=== PATIENT | female | born 1970 | race Caucasian/White ===

== ENCOUNTER → 2016-07-09 | Outpatient (CLI) | payer BC ==
[2016-07-09 14:18] LABS: ALBUMIN 3.7 GM/DL (3.2-5.2); ALBUMIN/GLOBULIN RATIO 1.28 (1.00-1.93); ALKALINE PHOSPHATASE 57 U/L (45-117); ALT/SGPT 13 U/L (12-78); ANION GAP 7 MEQ/L (8-16); AST/SGOT 13 U/L (15-37); BILIRUBIN,TOTAL 0.4 MG/DL (0.2-1.0); BLOOD UREA NITROGEN 7 MG/DL (7-18); CALCIUM LEVEL 8.4 MG/DL (8.5-10.1); CARBON DIOXIDE LEVEL 27 MEQ/L (21-32); CHLORIDE LEVEL 107 MEQ/L (98-107); CREATININE FOR GFR 0.71 MG/DL (0.55-1.02); FERRITIN 4 NG/ML (8-252); GLOMERULAR FILTRATION RATE > 60.0 (>58); GLUCOSE, FASTING 87 MG/DL (70-105); POTASSIUM SERUM 4.7 MEQ/L (3.5-5.1); SODIUM LEVEL 141 MEQ/L (136-145); TOTAL PROTEIN 6.6 GM/DL (6.4-8.2)
[2016-07-09 14:45] LABS: MEAN CORPUSCULAR HEMOGLOBIN 24.7 pg (27.0-33.0); MEAN CORPUSCULAR HGB CONC 30.6 g/dl (32.0-36.5); MEAN CORPUSCULAR VOLUME 80.9 fl (80.0-96.0); PLATELET COUNT, AUTOMATED 332 k/mm3 (150-450); RED CELL DISTRIBUTION WIDTH 15.6 % (11.5-14.5); WHITE BLOOD COUNT 4.7 K/mm3 (4.0-10.0)
[2016-07-09 14:46] LABS: DIFF SLIDE NUMBER 120
[2016-07-09 14:53] LABS: BASOPHILS 1 % (0-4); EOSINOPHILS 3 % (0-5); HYPOCHROMASIA 2+
== END ==
LOC: M WUC 08:45
PROVIDERS: ATTEND Family Medicine
DX: E16.2 Hypoglycemia, unspecified (principal); Z98.84 Bariatric surgery status; E11.40 Type 2 diabetes mellitus with diabetic neuropathy, unspecified

== ENCOUNTER → 2016-10-04 | Outpatient (REF) | payer BC | LOC: M SFHCLERA 14:23 | PROVIDERS: ATTEND Nurse Practitioner Family | DX: R06.02 Shortness of breath (principal) ==

== ENCOUNTER → 2016-10-04 | Outpatient (CLI) | payer BC ==
--- NOTE | 2016-10-04 14:20 | REP ---
Clinical: Shortness of breath . Comparison: 02/10/2012 . Technique: PA and lateral. Findings: The mediastinum and cardiac silhouette are normal. The lung rucker are clear and without acute consolidation, effusion, or pneumothorax. Few scattered calcified granulomata remain stable. The skeletal structures are intact and normal. Impression: 1. No acute cardiopulmonary process. Signed by Louie Saunders MD 10/04/2016 02:11 P
== END ==
LOC: M LRY 13:51
PROVIDERS: ATTEND Nurse Practitioner Family
DX: R06.02 Shortness of breath (principal)

== ENCOUNTER → 2016-10-18 | Outpatient (CLI) | payer BC ==
[2016-10-18 19:03] LABS: BASO % 0.4 % (0.0-1.0); EOS # 0.1 K/mm3 (0.0-0.50); EOS % 1.9 % (0.0-3.0); LARGE UNSTAINED CELL # 0.2 K/mm3 (0.0-0.4); LARGE UNSTAINED CELL % 3.1 % (0.0-4.0); LYMPH # 1.9 K/mm3 (1.5-4.5); LYMPH % 32.7 % (24.0-44.0); MEAN CORPUSCULAR HEMOGLOBIN 28.7 pg (27.0-33.0); MEAN CORPUSCULAR HGB CONC 31.9 g/dl (32.0-36.5); MEAN CORPUSCULAR VOLUME 89.9 fl (80.0-96.0); MONO # 0.4 K/mm3 (0.0-0.8); MONO % 7.3 % (0.0-5.0); NEUTROPHILS # 3.2 K/mm3 (1.8-7.7); NEUTROPHILS % 54.6 % (36.0-66.0); PLATELET COUNT, AUTOMATED 356 k/mm3 (150-450); RED CELL DISTRIBUTION WIDTH 16.8 % (11.5-14.5); WHITE BLOOD COUNT 5.9 K/mm3 (4.0-10.0)
== END ==
LOC: M WUC 10:59
PROVIDERS: ATTEND Family Medicine
DX: D50.9 Iron deficiency anemia, unspecified (principal); E55.9 Vitamin D deficiency, unspecified

== ENCOUNTER → 2016-12-01 | Outpatient (REF) | payer BC | LOC: M LAB REF 16:51 | PROVIDERS: ATTEND Family Medicine | DX: Z01.419 Encounter for gynecological examination (general) (routine) without abnormal findings (principal); Z11.51 Encounter for screening for human papillomavirus (HPV) ==

== ENCOUNTER → 2017-01-27 | Outpatient (CLI) | payer BC ==
[2017-01-27 14:31] LABS: BASO % 0.5 % (0.0-1.0); EOS # 0.1 K/mm3 (0.0-0.50); LARGE UNSTAINED CELL # 0.1 K/mm3 (0.0-0.4); LARGE UNSTAINED CELL % 2.3 % (0.0-4.0); LYMPH # 1.8 K/mm3 (1.5-4.5); LYMPH % 30.8 % (24.0-44.0); MEAN CORPUSCULAR HEMOGLOBIN 29.6 pg (27.0-33.0); MEAN CORPUSCULAR HGB CONC 32.6 g/dl (32.0-36.5); MEAN CORPUSCULAR VOLUME 90.7 fl (80.0-96.0); MONO # 0.2 K/mm3 (0.0-0.8); MONO % 3.6 % (0.0-5.0); NEUTROPHILS # 3.6 K/mm3 (1.8-7.7); NEUTROPHILS % 60.8 % (36.0-66.0); PLATELET COUNT, AUTOMATED 333 k/mm3 (150-450); RED CELL DISTRIBUTION WIDTH 13.6 % (11.5-14.5)
[2017-01-27 15:17] LABS: ERYTHROCYTE SEDIMENTATION RATE 12 mm/hr (0-20)
[2017-01-29 00:07] LABS: Lyme Disease IgG/IgM Antibodie <0.91 ISR (0.00-0.90); Lyme Disease IgM Ab Quantitati <0.80 index (0.00-0.79)
== END ==
LOC: M WUC 12:09
PROVIDERS: ATTEND Family Medicine
DX: H15.102 Unspecified episcleritis, left eye (principal); E55.9 Vitamin D deficiency, unspecified; M25.50 Pain in unspecified joint

== ENCOUNTER → 2017-09-12 | Outpatient (CLI) | payer BC ==
[2017-09-12 12:18] LABS: HEMATOCRIT 34.3 % (36.0-47.0); HEMOGLOBIN 10.9 g/dl (12.0-15.5); MEAN CORPUSCULAR HEMOGLOBIN 25.7 pg (27.0-33.0); MEAN CORPUSCULAR HGB CONC 31.8 g/dl (32.0-36.5); MEAN CORPUSCULAR VOLUME 80.9 fl (80.0-96.0); PLATELET COUNT, AUTOMATED 333 10^3/uL (150-450); RED BLOOD COUNT 4.24 10^6/uL (4.00-5.40); RED CELL DISTRIBUTION WIDTH 14.8 % (11.5-14.5); WHITE BLOOD COUNT 4.9 10^3/uL (4.0-10.0)
[2017-09-12 12:33] LABS: TOTAL 25(OH) VITAMIN D 15.9 NG/ML (30.0-100.0); VITAMIN B12 LEVEL 283 PG/ML
[2017-09-12 13:10] LABS: ALBUMIN 3.6 GM/DL (3.2-5.2); ALBUMIN/GLOBULIN RATIO 1.16 (1.00-1.93); ALKALINE PHOSPHATASE 60 U/L (45-117); ALT/SGPT 19 U/L (12-78); ANION GAP 8 MEQ/L (8-16); AST/SGOT 11 U/L (7-37); BILIRUBIN,TOTAL 0.3 MG/DL (0.2-1.0); BLOOD UREA NITROGEN 11 MG/DL (7-18); CALCIUM LEVEL 8.3 MG/DL (8.5-10.1); CARBON DIOXIDE LEVEL 24 MEQ/L (21-32); CHLORIDE LEVEL 111 MEQ/L (98-107); CHOLESTEROL LEVEL 185 MG/DL (<200); CHOLESTEROL RISK RATIO 3.135 (<5); CREATININE FOR GFR 0.77 MG/DL (0.55-1.30); FREE T4 0.97 NG/DL (0.76-1.46); GLOMERULAR FILTRATION RATE > 60.0 (>58); GLUCOSE, FASTING 86 MG/DL (70-100); HDL CHOLESTEROL 59 MG/DL (>40); LDL CHOLESTEROL 106.4 MG/DL (<100); NON-HDL-C 126 MG/DL; POTASSIUM SERUM 4.1 MEQ/L (3.5-5.1); SODIUM LEVEL 143 MEQ/L (136-145); TOTAL PROTEIN 6.7 GM/DL (6.4-8.2); TRIGLYCERIDES LEVEL 98 MG/DL (<150)
== END ==
LOC: M WUC 09:02
DX: L40.4 Guttate psoriasis (principal); Z13.220 Encounter for screening for lipoid disorders; E55.9 Vitamin D deficiency, unspecified; R53.82 Chronic fatigue, unspecified; Z13.0 Encounter for screening for diseases of the blood and blood-forming organs and certain disorders involving the immune mechanism; Z13.29 Encounter for screening for other suspected endocrine disorder
CPT/HCPCS: 82746

== ENCOUNTER → 2018-01-24 | Outpatient (REF) | payer BC | LOC: M LAB REF 17:55 | DX: N93.9 Abnormal uterine and vaginal bleeding, unspecified (principal) | CPT/HCPCS: 88304 ==

== ENCOUNTER → 2018-02-17 | Outpatient (CLI) | payer BC ==
[2018-02-17 13:08] LABS: BASO % 0.4 % (0.0-1.0); EOS # 0.1 10^3/uL (0.0-0.50); EOS % 2.6 % (0.0-3.0); HEMATOCRIT 32.6 % (36.0-47.0); HEMOGLOBIN 10.2 g/dl (12.0-15.5); IMMATURE GRANULOCYTE % 0.2 % (0-3.0); LYMPH # 1.5 10^3/uL (1.5-4.5); LYMPH % 33.1 % (24.0-44.0); MEAN CORPUSCULAR HEMOGLOBIN 24.4 pg (27.0-33.0); MEAN CORPUSCULAR HGB CONC 31.3 g/dl (32.0-36.5); MONO # 0.4 10^3/uL (0.0-0.8); MONO % 7.6 % (0.0-5.0); NEUTROPHILS # 2.6 10^3/uL (1.8-7.7); NEUTROPHILS % 56.1 % (36.0-66.0); PLATELET COUNT, AUTOMATED 361 10^3/uL (150-450); RED BLOOD COUNT 4.18 10^6/uL (4.00-5.40); RED CELL DISTRIBUTION WIDTH 15.1 % (11.5-14.5); WHITE BLOOD COUNT 4.6 10^3/uL (4.0-10.0)
[2018-02-17 13:36] LABS: ERYTHROCYTE SEDIMENTATION RATE 15 mm/hr (0-20)
[2018-02-17 13:45] LABS: ANION GAP 10 MEQ/L (8-16); BLOOD UREA NITROGEN 11 MG/DL (7-18); C REACTIVE PROTEIN QUANTITATIV 0.75 MG/DL (0.00-0.30); CALCIUM LEVEL 8.8 MG/DL (8.5-10.1); CARBON DIOXIDE LEVEL 26 MEQ/L (21-32); CHLORIDE LEVEL 107 MEQ/L (98-107); CREATININE FOR GFR 0.61 MG/DL (0.55-1.30); FERRITIN 7 NG/ML (8-252); GLOMERULAR FILTRATION RATE > 60.0 (>58); GLUCOSE, FASTING 89 MG/DL (70-100); IRON (FE) 40 UG/DL (50-170); PERCENT SATURATION 11.3 % (13.2-45.0); RHEUMATOID FACTOR QUANT < 10.0 IU/ML (<15.0); SODIUM LEVEL 143 MEQ/L (136-145); TOTAL IRON BINDING CAPACITY 355 UG/DL (250-450)
[2018-02-17 14:10] LABS: ESTIMATED AVERAGE GLUCOSE 120 MG/DL (60-110); HEMOGLOBIN A1c 5.8 %
[2018-02-19 00:06] LABS: Lyme Disease IgG/IgM Antibodie <0.91 ISR (0.00-0.90); Lyme Disease IgM Ab Quantitati <0.80 index (0.00-0.79)
[2018-02-20 00:09] LABS: CYCLIC CITRULLINATED PEPTIDE 4 units (0-19)
== END ==
LOC: M WUC 09:03
DX: R60.0 Localized edema (principal); E55.9 Vitamin D deficiency, unspecified; E61.1 Iron deficiency; Z98.84 Bariatric surgery status; M25.50 Pain in unspecified joint; E11.9 Type 2 diabetes mellitus without complications
CPT/HCPCS: 83550

== ENCOUNTER → 2018-03-22 | Outpatient (REF) | payer BC | LOC: M LAB REF 17:22 | DX: J02.9 Acute pharyngitis, unspecified (principal) ==

== ENCOUNTER → 2018-08-11 | Outpatient (CLI) | payer BC ==
[~2018-08-11] MED LIST: GABA-843 PO; IRON325T7 PO; MULTCAP PO; VITA50005 PO
[2018-08-11 13:32] LABS: BASO % 0.4 % (0.0-1.0); EOS # 0.1 10^3/uL (0.0-0.50); EOS % 2.3 % (0.0-3.0); HEMATOCRIT 33.3 % (36.0-47.0); LYMPH # 1.6 10^3/uL (1.5-4.5); LYMPH % 33.1 % (24.0-44.0); MEAN CORPUSCULAR HEMOGLOBIN 23.9 pg (27.0-33.0); MEAN CORPUSCULAR VOLUME 79.5 fl (80.0-96.0); MONO # 0.3 10^3/uL (0.0-0.8); MONO % 5.6 % (0.0-5.0); NEUTROPHILS # 2.8 10^3/uL (1.8-7.7); NEUTROPHILS % 58.4 % (36.0-66.0); PLATELET COUNT, AUTOMATED 293 10^3/uL (150-450); RED BLOOD COUNT 4.19 10^6/uL (4.00-5.40); WHITE BLOOD COUNT 4.8 10^3/uL (4.0-10.0)
[2018-08-11 14:10] LABS: ALBUMIN 3.8 GM/DL (3.2-5.2); ALT/SGPT 20 U/L (12-78); BILIRUBIN,TOTAL 0.4 MG/DL (0.2-1.0); BLOOD UREA NITROGEN 9 MG/DL (7-18); CALCIUM LEVEL 8.4 MG/DL (8.5-10.1); CARBON DIOXIDE LEVEL 27 MEQ/L (21-32); CHLORIDE LEVEL 105 MEQ/L (98-107); CREATININE FOR GFR 0.75 MG/DL (0.55-1.30); FERRITIN 7 NG/ML (8-252); GLOMERULAR FILTRATION RATE > 60.0 (>58); GLUCOSE, FASTING 105 MG/DL (70-100); IRON (FE) 44 UG/DL (50-170); PERCENT SATURATION 10.8 % (13.2-45.0); POTASSIUM SERUM 4.2 MEQ/L (3.5-5.1); SODIUM LEVEL 139 MEQ/L (136-145); TOTAL 25(OH) VITAMIN D 20.4 NG/ML (30.0-100.0); TOTAL IRON BINDING CAPACITY 406 UG/DL (250-450); TOTAL PROTEIN 6.6 GM/DL (6.4-8.2)
== END ==
LOC: M WUC 10:14
PROVIDERS: ATTEND Family Medicine
DX: R60.0 Localized edema (principal); E55.9 Vitamin D deficiency, unspecified; E61.1 Iron deficiency

== ENCOUNTER → 2018-10-06 | Outpatient (CLI) | payer BC ==
[~2018-10-06] MED LIST changes: +FERR325T82 PO; +HYDR25TAB PO; -IRON325T7 PO; +VITACAP8 PO
--- NOTE | 2018-10-06 13:25 | REP ---
Clinical: Bilateral pain. Technique: AP, lateral, bilateral oblique views of the right and left hand. Findings: Osseous structures, joint spaces, and surrounding soft tissues are relatively normal for age and symmetric. Minimal periarticular sclerosis and scattered interphalangeal joints appreciated. No overt osteoarthritic or inflammatory arthritic degenerative changes are appreciated. No subcutaneous emphysema or radiodense foreign body. No acute fracture dislocation. Findings: Symmetric age-appropriate bilateral hand radiograph series. Very minimal arthritic changes involving scattered interphalangeal joints. Electronically Signed by Louie Saunders MD 10/06/2018 01:17 P
[2018-10-06 17:39] LABS: C REACTIVE PROTEIN QUANTITATIV 0.49 MG/DL (0.00-0.30); FERRITIN 5 NG/ML (8-252); IRON (FE) 21 UG/DL (50-170); PERCENT SATURATION 5.2 % (13.2-45.0); RHEUMATOID FACTOR QUANT < 10.0 IU/ML (<15.0); TOTAL IRON BINDING CAPACITY 403 UG/DL (250-450)
[2018-10-09 09:03] LABS: TOTAL 25(OH) VITAMIN D 21.3 NG/ML (30.0-100.0)
[2018-10-11 00:07] LABS: ANTINUCLEAR ANTIBODIES DIRECT Negative (Negative); CYCLIC CITRULLINATED PEPTIDE 4 units (0-19); Lyme Disease IgG/IgM Antibodie <0.91 ISR (0.00-0.90); Lyme Disease IgM Ab Quantitati <0.80 index (0.00-0.79)
== END ==
LOC: M WUC 11:37
PROVIDERS: ATTEND Family Medicine
DX: M25.542 Pain in joints of left hand (principal); M25.541 Pain in joints of right hand

== ENCOUNTER 2018-10-17 09:52 | Outpatient (CLI) | payer BC ==
[~2018-10-17] VITALS: Ht 170.2 cm; Wt 109.1 kg
[~2018-10-17 09:52] MED LIST changes: -HYDR25TAB PO; -VITACAP8 PO
[2018-10-17] MEDS ORDERED: NS IV ONE (10:00)
[2018-10-17] MEDS ORDERED: FERRIC CARBOXYMALTOSE IV ONE (10:00)
[2018-10-17] MEDS ORDERED: VITACAP8 PO (10:23)
[2018-10-17] MEDS ORDERED: HYDR25TAB PO (10:23)
[2018-10-17 10:30] VITALS: BP 123/57
[2018-10-17 10:46] VITALS: BP 123/57
[2018-10-17 11:26] VITALS: BP 120/57
== END 2018-10-17 11:45 | disposition home or self-care (01) ==
LOC: M INFU 09:52
PROVIDERS: ATTEND Family Medicine
DX: E61.1 Iron deficiency (principal); Z98.84 Bariatric surgery status
CPT/HCPCS: 96365; J1439

== ENCOUNTER 2018-10-24 13:17 | Outpatient (CLI) | payer BC ==
[~2018-10-24] VITALS: Ht 170.2 cm; Wt 100.5 kg
[~2018-10-24 13:17] MED LIST changes: +HYDR25TAB PO; +VITACAP8 PO
[2018-10-24 13:35] VITALS: BP 135/80
[2018-10-24] MEDS ORDERED: FERRIC CARBOXYMALTOSE IV ONE (14:30)
[2018-10-24] MEDS ORDERED: NS IV ONE (14:30)
[2018-10-24 15:30] VITALS: BP 126/84
== END 2018-10-24 15:35 | disposition home or self-care (01) ==
LOC: M INFU 13:17
PROVIDERS: ATTEND Family Medicine
DX: E61.1 Iron deficiency (principal); Z98.84 Bariatric surgery status
CPT/HCPCS: 96365; J1439

== ENCOUNTER → 2018-11-13 | Outpatient (CLI) | payer BC ==
[2018-11-13 13:30] LABS: BASO % 0.7 % (0.0-1.0); EOS # 0.1 10^3/uL (0.0-0.50); EOS % 1.1 % (0.0-3.0); HEMATOCRIT 37.5 % (36.0-47.0); HEMOGLOBIN 11.9 g/dl (12.0-15.5); LYMPH # 1.6 10^3/uL (1.5-4.5); LYMPH % 36.9 % (24.0-44.0); MEAN CORPUSCULAR HEMOGLOBIN 27.5 pg (27.0-33.0); MEAN CORPUSCULAR HGB CONC 31.7 g/dl (32.0-36.5); MEAN CORPUSCULAR VOLUME 86.6 fl (80.0-96.0); MONO # 0.3 10^3/uL (0.0-0.8); MONO % 6.2 % (0.0-5.0); NEUTROPHILS # 2.4 10^3/uL (1.8-7.7); NEUTROPHILS % 54.9 % (36.0-66.0); PLATELET COUNT, AUTOMATED 277 10^3/uL (150-450); RED BLOOD COUNT 4.33 10^6/uL (4.00-5.40); WHITE BLOOD COUNT 4.4 10^3/uL (4.0-10.0)
[2018-11-13 13:39] LABS: PERCENT SATURATION 37.3 % (13.2-45.0)
== END ==
LOC: M WUC 10:35
PROVIDERS: ATTEND Family Medicine
DX: E61.1 Iron deficiency (principal)

== ENCOUNTER → 2019-04-19 | Outpatient (CLI) | payer BC | LOC: M LRY 11:38 | PROVIDERS: ATTEND Nurse Practitioner Family | DX: R05 Cough (principal); Z53.9 Procedure and treatment not carried out, unspecified reason ==

== ENCOUNTER → 2019-08-30 | Outpatient (CLI) | payer BC | LOC: M LABSMTC 10:50 | PROVIDERS: ATTEND Family Medicine | DX: Z11.59 Encounter for screening for other viral diseases (principal); Z20.828 Contact with and (suspected) exposure to other viral communicable diseases ==

== ENCOUNTER → 2020-04-30 | Outpatient (CLI) | payer BC ==
--- NOTE | 2020-04-30 09:26 | REP ---
INDICATION: PAIN IN JOINTS. Base of thumb and navicular pain. COMPARISON: Comparison right hand radiographs are from October 06, 2018.. TECHNIQUE: Four views. FINDINGS: Four views of the right hand demonstrate moderate osteoarthritis at the 1st carpometacarpal articulation with joint space narrowing, sclerosis and spurring. There are new calcifications or ossifications in the adjacent soft tissues at the 1st carpometacarpal articulation. The sclerosis and joint space narrowing are similar to the October 06, 2018 study. No bony destructive lesion is seen. There is minimal spurring at the DIP joint of the index finger as well.. No fracture or subluxation is seen. No opaque foreign body noted. IMPRESSION: Moderate osteoarthritis at the 1st carpometacarpal articulation with periarticular soft tissue ossicles. No acute bony abnormality. Osteoarthritic spurring at the DIP joint of the index finger is also noted.. <Electronically signed by Vijay Wyatt > 04/30/20 0913
[2020-04-30 14:11] LABS: BASO % 0.4 % (0.0-1.0); EOS # 0.2 10^3/uL (0.0-0.5); EOS % 1.7 % (0.0-3.0); HEMATOCRIT 38.5 % (36.0-47.0); HEMOGLOBIN 11.7 g/dl (12.0-15.5); LYMPH # 3.2 10^3/uL (1.5-5.0); LYMPH % 32.6 % (24.0-44.0); MEAN CORPUSCULAR HEMOGLOBIN 25.7 pg (27.0-33.0); MEAN CORPUSCULAR HGB CONC 30.4 g/dl (32.0-36.5); MEAN CORPUSCULAR VOLUME 84.4 fl (80.0-96.0); MONO # 0.6 10^3/uL (0.0-0.8); MONO % 6.5 % (0.0-5.0); NEUTROPHILS # 5.6 10^3/uL (1.5-8.5); NEUTROPHILS % 58.3 % (36.0-66.0); PLATELET COUNT, AUTOMATED 327 10^3/uL (150-450); RED BLOOD COUNT 4.56 10^6/uL (4.00-5.40); WHITE BLOOD COUNT 9.7 10^3/uL (4.0-10.0)
[2020-04-30 14:20] LABS: ALBUMIN 3.3 GM/DL (3.2-5.2); ALT/SGPT 17 U/L (12-78); BILIRUBIN,TOTAL 0.3 MG/DL (0.2-1.0); BLOOD UREA NITROGEN 11 MG/DL (7-18); C REACTIVE PROTEIN QUANTITATIV 1.19 MG/DL (0.00-0.30); CALCIUM LEVEL 8.6 MG/DL (8.5-10.1); CARBON DIOXIDE LEVEL 27 MEQ/L (21-32); CHLORIDE LEVEL 107 MEQ/L (98-107); CREATININE FOR GFR 0.83 MG/DL (0.55-1.30); GLOMERULAR FILTRATION RATE > 60.0 (>58); GLUCOSE, FASTING 81 MG/DL (70-100); POTASSIUM SERUM 3.9 MEQ/L (3.5-5.1); RHEUMATOID FACTOR QUANT < 10.0 IU/ML (<15.0); SODIUM LEVEL 139 MEQ/L (136-145); TOTAL PROTEIN 6.2 GM/DL (6.4-8.2); URIC ACID 4.8 MG/DL (2.6-6.0)
[2020-04-30 15:19] LABS: ERYTHROCYTE SEDIMENTATION RATE 5 mm/hr (0-20)
[2020-05-01 23:09] LABS: ANA (HEP2) Negative (.); CYCLIC CITRULLINATED PEPTIDE 4 units (0-19)
== END ==
LOC: M WUC 08:35
PROVIDERS: ATTEND Physician Assistant
DX: M18.11 Unilateral primary osteoarthritis of first carpometacarpal joint, right hand (principal)

== ENCOUNTER → 2020-05-20 | Outpatient (CLI) | payer BC ==
[2020-05-20 13:13] LABS: BASO % 0.3 % (0.0-1.0); EOS # 0.2 10^3/uL (0.0-0.5); EOS % 2.4 % (0.0-3.0); HEMATOCRIT 36.3 % (36.0-47.0); HEMOGLOBIN 11.3 g/dl (12.0-15.5); LYMPH # 2.6 10^3/uL (1.5-5.0); LYMPH % 36.8 % (24.0-44.0); MEAN CORPUSCULAR HEMOGLOBIN 26.1 pg (27.0-33.0); MEAN CORPUSCULAR HGB CONC 31.1 g/dl (32.0-36.5); MEAN CORPUSCULAR VOLUME 83.8 fl (80.0-96.0); MONO # 0.5 10^3/uL (0.0-0.8); MONO % 7.6 % (0.0-5.0); NEUTROPHILS # 3.6 10^3/uL (1.5-8.5); NEUTROPHILS % 52.5 % (36.0-66.0); PLATELET COUNT, AUTOMATED 394 10^3/uL (150-450); RED BLOOD COUNT 4.33 10^6/uL (4.00-5.40)
[2020-05-20 13:46] LABS: ALBUMIN 3.4 GM/DL (3.2-5.2); ALT/SGPT 14 U/L (12-78); BILIRUBIN,TOTAL 0.4 MG/DL (0.2-1.0); BLOOD UREA NITROGEN 8 MG/DL (7-18); CARBON DIOXIDE LEVEL 30 MEQ/L (21-32); CHLORIDE LEVEL 107 MEQ/L (98-107); CHOLESTEROL LEVEL 204 MG/DL (<200); CHOLESTEROL RISK RATIO 2.956 (<5); CREATININE FOR GFR 0.83 MG/DL (0.55-1.30); FREE T4 1.13 NG/DL (0.76-1.46); GLOMERULAR FILTRATION RATE > 60.0 (>58); GLUCOSE, FASTING 83 MG/DL (70-100); HDL CHOLESTEROL 69 MG/DL (>40); LDL CHOLESTEROL 116 MG/DL (<100); NON-HDL-C 135 MG/DL; POTASSIUM SERUM 4.5 MEQ/L (3.5-5.1); SODIUM LEVEL 141 MEQ/L (136-145); TOTAL PROTEIN 6.3 GM/DL (6.4-8.2); TRIGLYCERIDES LEVEL 96 MG/DL (<150)
[2020-05-20 14:37] LABS: HEMOGLOBIN A1c 5.7 %
[2020-05-20 19:54] LABS: TOTAL 25(OH) VITAMIN D 16.1 NG/ML (30.0-100.0)
== END ==
LOC: M WUC 09:17
PROVIDERS: ATTEND Physician Assistant
DX: Z13.29 Encounter for screening for other suspected endocrine disorder (principal)

== ENCOUNTER → 2020-05-21 | Outpatient (REF) | payer BC ==
[2020-05-21 17:15] LABS: CREATININE,RANDOM URINE 74.4 MG/DL; TOTAL PROTEIN,RANDOM URINE 7.4 MG/DL (0.0-12.0)
== END ==
LOC: M SFHCRHEU 14:54
PROVIDERS: ATTEND Internal Medicine
DX: I77.6 Arteritis, unspecified (principal)

== ENCOUNTER → 2020-05-21 | Outpatient (CLI) | payer BC | LOC: M WUC 15:48 | PROVIDERS: ATTEND Internal Medicine | DX: I77.6 Arteritis, unspecified (principal) ==

== ENCOUNTER → 2020-05-22 | Outpatient (CLI) | payer BC ==
[~2020-05-22] MED LIST changes: +ISOVUE-370 76% 100ML VIAL As Ordered ONE
--- NOTE | 2020-05-22 09:26 | REP ---
INDICATION: VASCULITIS COMPARISON: None. TECHNIQUE: Contrast enhancement dose is 125 mL of intravenous Isovue 370. Helical scanning is acquired. 2 mm axial images are re-formatted. Coronal and sagittal MPR images are generated. Coronal and sagittal MIP and oblique MPR images are generated. 3D surface rendered images are generated and viewed rotationally. FINDINGS: Incidental findings include granulomatous calcifications in the left upper lobe of the lung and in left hilar lymph nodes. There is an azygos lobe on the right. The aortic arch enhances homogeneously without significant plaquing or calcification. No evidence of aneurysm or dissection. Great vessel origins are unremarkable. There is no evidence of subclavian arterial occlusion or stenosis on either side. No venous abnormality is appreciated. Common carotid arteries are intact bilaterally and widely patent. Basilar arteries are patent and symmetric. The basilar artery is unremarkable at the skull base. Carotid bifurcations show no evidence of high-grade stenosis. There is minimal calcific plaquing at the proximal ICA origin on the left. The cervical segments of the internal carotid arteries are normal. Maximum intensity projection images show no additional abnormality. No bony destructive lesion is seen. IMPRESSION: Minimal plaquing at the left carotid bifurcation. No high-grade stenosis, occlusion, dissection, or aneurysm. No abnormal arterial wall thickening is appreciated. Old granulomatous changes are noted in the left chest. <Electronically signed by Vijay Wyatt > 05/22/20 [id number]
--- NOTE | 2020-05-22 09:34 | REP ---
INDICATION: VASCULITIS COMPARISON: None TECHNIQUE: Axial contrast-enhanced images from the lung bases to the pubic symphysis using arterial angiographic technique including coronal and sagittal reformations, volume rendered 3D aorto angiogram, and 3D MPR images. 100 cc Isovue 370 intravenous contrast material administered without complication. This CT examination was performed using the following dose reduction techniques: Automated exposure control, adjustment of mA and/or kv according to the patient's size, and use of iterative reconstruction technique. FINDINGS: The abdominal aorta is normal in appearance. There is no evidence for abdominal aortic aneurysm or dissection and the contour appears normal. Very minimal partially calcified atherosclerotic changes are identified primarily at the level of the bifurcation and involving the iliac arteries. Aortic branch vessels including celiac axis, independent splenic artery, superior mesenteric artery, bilateral renal arteries and inferior mesenteric artery all appear patent and normal. Liver, spleen, pancreas, bilateral adrenal glands and kidneys are normal. Evidence for prior gastric bypass surgery and cholecystectomy noted. The enteric system is without obstruction or acute inflammatory process. Pelvis demonstrates normal bladder and suspected myomatous changes to the uterus. No pelvic fluid or ascites. No free air. No adenopathy. Surrounding musculoskeletal structures are intact and without acute process. IMPRESSION: 1. Essentially normal age-appropriate appearance to the aorta and branch vessels. 2. Minimal partially calcified atherosclerotic changes primarily involving the bilateral iliac arteries. 3. Suspected myomatous changes to the uterus. 4. Evidence for prior gastric bypass surgery and cholecystectomy. <Electronically signed by Louie Saunders > 05/22/20 0931
--- NOTE | 2020-05-22 09:37 | REP ---
INDICATION: VASCULITIS COMPARISON: None. TECHNIQUE: Axial contrast enhanced images from the thoracic inlet to the upper abdomen using aortic angiographic technique with multiplanar re-formations. 100 ml Isovue 370 intravenous contrast material administered without complication. This CT examination was performed using the following dose reduction techniques: Automated exposure control, adjustment of mA and/or kv according to the patient's size, and use of iterative reconstruction technique. FINDINGS: Thoracic aorta is normal caliber and appearance without aneurysm or dissection. Pulmonary vasculature is grossly normal in appearance and size. Heart and pericardium are normal and without cardiomegaly or pericardial effusion. Further evaluation of the mediastinum demonstrates normal thyroid gland. No evidence for adenopathy. Small hiatal hernia with evidence for prior gastric bypass surgery noted. Bilateral lung rucker are well aerated and clear. No consolidation, pleural effusion, or pneumothorax. No obvious nodule. Incidental calcified nodule in the left upper lobe and calcified left hilar lymph nodes consistent with prior granulomatous disease. IMPRESSION: 1. Normal appearance of the thoracic aorta. 2. Evidence for prior granulomatous disease. 3. No acute mediastinal or pleuroparenchymal process. <Electronically signed by Louie Saunders > 05/22/20 0972
--- NOTE | 2020-05-22 09:40 | REP ---
INDICATION: VASCULITIS. COMPARISON: None. TECHNIQUE: Axial contrast-enhanced images of the right upper extremity with coronal and sagittal reformations. FINDINGS: Examination is essentially nondiagnostic as CT angiogram. The subclavian and axillary arteries are identified and patent. Remainder of the right upper extremity is essentially excluded from images. IMPRESSION: Nondiagnostic as right upper extremity angiogram. Patent appearance to the visualized subclavian and axillary arteries. <Electronically signed by Louie Saunders > 05/22/20 0998
== END ==
LOC: M RAD 07:50
PROVIDERS: ATTEND Internal Medicine
DX: I77.6 Arteritis, unspecified (principal); Z98.84 Bariatric surgery status
CPT/HCPCS: 70498; 71275; 73206; 74174; Q9967

== ENCOUNTER → 2020-05-25 | Outpatient (CLI) | payer BC ==
[~2020-05-25] MED LIST changes: -ISOVUE-370 76% 100ML VIAL As Ordered ONE
[2020-05-25 14:04] LABS: C REACTIVE PROTEIN QUANTITATIV < 0.30 MG/DL (0.00-0.30); COMPLEMENT C3 124 MG/DL (90-180); COMPLEMENT C4 22 MG/DL (10-40)
[2020-05-26 13:38] LABS: HEPATITIS B SURFACE ANTIGEN NEGATIVE (NEGATIVE)
[2020-05-26 15:13] LABS: HEPATITIS C VIRUS ABY INDEX < 0.0 INDEX (<0.8)
== END ==
LOC: M LAB 11:42
PROVIDERS: ATTEND Internal Medicine
DX: I77.6 Arteritis, unspecified (principal)

== ENCOUNTER → 2020-06-10 | Outpatient (POV) | payer BC ==
[~2020-06-10] MED LIST changes: +GABA-282 PO; -GABA-843 PO; +HYDR-3490 PO; -HYDR25TAB PO
--- NOTE | 2020-06-11 14:48 | IRCOV ---
[facility] [place] IR Consult Office Visit IR Consult Office Visit DATE: Jun 10, 2020 Patient agreed to this telephone consultation. I spent 30 minutes reviewing patient's records, imaging and talking to the patient. REASON FOR CONSULTATION/CHIEF COMPLAINT: Vasculitis. HISTORY OF PRESENT ILLNESS: 49-year-old female with history of chronic anemia, previous gastric bypass and family history of rheumatoid arthritis, describes waking up on April 26 feeling fine. She then noticed her right index finger and pinky finger became very very cold and numb. The next day she noticed that all 4 of her right hand fingers except thumb were also cold and numb with discoloration. She was seen and diagnosed with Raynaud. She then noticed red dots under the skin, on the index and pinky finger pad and on the bottom of the hand on the hypothenar eminence. She states she was seen by rheumatology and placed on high-dose prednisone. Her symptoms have mostly resolved and now she describes a residual red spot that is scabbing over, located on the pad of her index finger. She denies any current blue black disc oloration of the fingers. She denies any weakness in the fingers, numbness or tingling. She denies any similar symptoms in the past. ALLERGIES: Please see below. HOME MEDICATIONS: Please see below. PAST MEDICAL HISTORY: Chronic anemia PAST SURGICAL HISTORY: Gastric bypass surgery FAMILY HISTORY: Rheumatoid arthritis. SOCIAL HISTORY: Ex-smoker, quit in April 2020. Denies alcohol, drugs or marijuana. REVIEW OF SYSTEMS: Otherwise negative. PHYSICAL EXAMINATION: No video on patient side. Patient sent pictures of the right hand, palm up and palm down including all fingers. These demonstrate all fingers are pink in color. No blue or black discoloration of the digits. On the pad of the index finger there is a lesion which appears to be a red papule with surrounding desquamation. On the distal tip of the index finger there is a focal punctate brown discoloration. LABORATORY DATA: 05/20/20 hemoglobin 11.3 hematocrit 36.3 WBC 7.0 platelets 394 sodium 141 potassium 4.5 BUN 8 creatinine 0.83 GFR greater than 60 glucose 83 hemoglobin A1c 5.7 total bilirubin 0.4 AST 5 ALT 14 ALP 70 Total cholesterol 204 TSH 1.19 T4 1.13. Eosinophils 0.2 05/25/20 Protein C and protein S unremarkable Antinuclear antibody negative antineutrophil antibody negative SLE 70 scleroderma antibody less than 0.2 CRP less than 0.3 Imaging: I personally reviewed the CTA chest and right upper extremity performed on 05/22/2020. There is a focal partial filling defect at the origin of the right brachiocephalic artery. Beyond this there is normal opacification of the imaged right carotid artery and right subclavian artery. Right axillary artery and proximal right brachial artery appears patent. The forearm and hand are not imaged. ASSESSMENT/PLAN: 49-year-old female with recent episode of cold and numb right sided fingers associated with color change which have resolved with a residual digital skin discoloration and focal lesion. Workup for scleroderma is negative. She is referred to me for angiography for possible Buerger's disease. In light of the CTA, differential also includes showering of emboli from that focal thrombus at the origin of the right brachiocephalic artery. At this time, given the lesion at the origin of the right brachiocephalic artery, there is concern for showering emboli doing any kind of angiography of the right arm. I would prefer a noninvasive test with MRA of the right forearm and hand to assess for Buerger's disease. I discussed this with Dr. Wyatt the radiologist, the best way to protocol an MRA for the right forearm and hand. He is agreeable and will protocol the study. I also discussed this with Dr. Brar, the patient's political science chair. I will follow-up with the patient after the MRA. Thank you for this referral. Cc Dr. Carmel Brar Allergies Coded Allergies: No Known Allergies (Unverified , 01/20/18) Home Medications Scheduled Ergocalciferol (Vitamin D2) (Vitamin D2), 1 TAB PO DAILY, (Reported) Ferrous Sulfate (Iron), 325 MG PO DAILY, (Reported) Hydrochlorothiazide (Hydrochlorothiazide), 25 MG PO DAILY, (Reported) Multivitamin (Multivitamins), 1 CAP PO DAILY, (Reported) Scheduled PRN Gabapentin (Gabapentin), 300 MG PO DAILY PRN for PAIN, (Reported) Miscellaneous Medications Vitamin B Complex (Vitamin B Complex), 1 CAP PO, (Reported) FELICITY HANDY MD Jun 11, 2020 14:48
== END ==
LOC: M TMIRPOV 07:54
PROVIDERS: ATTEND Radiology Diagnostic Radiology
DX: I77.6 Arteritis, unspecified (principal); D64.9 Anemia, unspecified; I73.00 Raynaud's syndrome without gangrene; R20.2 Paresthesia of skin; Z72.0 Tobacco use; Z82.61 Family history of arthritis; Z98.84 Bariatric surgery status

== ENCOUNTER → 2020-06-16 | Outpatient (CLI) | payer BC ==
[~2020-06-16] MED LIST changes: -HYDR-3490 PO; +HYDR25TAB PO; +PROHANCE 279.3MG/ML 15ML VIAL As Ordered ONE
--- NOTE | 2020-06-16 12:03 | REP ---
INDICATION: BUERGERS DISEASE. COMPARISON: None. TECHNIQUE: Pre and post gadolinium enhanced MR angiography of the right upper extremity was planned. The intravenous access was difficult to establish and unfortunately, the power injection produced a extravasation and the injection failed. 25 mL of intravenous ProHance was the injected dose. Coronal T1 weighted 40 images are acquired and gradient echo rotational maximum intensity projection images were generated. Axial T1 weighted images are generated. FINDINGS: The exam is not interpretable for arterial visualization. The contrast injection failed. The distal brachial artery is seen on axial source images with bright signal. Arterial signal is not sufficient in the forearm or wrist for interpretation. The MIP images are unfortunately not helpful as well. IMPRESSION: Failed exam, uninterpretable. Contrast injection extravasation. Consider duplex arterial ultrasound of the right upper extremity. <Electronically signed by Vijay Wyatt > 06/16/20 [id number]
== END ==
LOC: M RAD 09:21
PROVIDERS: ATTEND Radiology Diagnostic Radiology
DX: I73.1 Thromboangiitis obliterans [Buerger's disease] (principal)
CPT/HCPCS: A9576; C8936

== ENCOUNTER → 2020-08-13 | Outpatient (CLI) | payer BC ==
[~2020-08-13] MED LIST changes: +HYDR-3490 PO; -HYDR25TAB PO; -PROHANCE 279.3MG/ML 15ML VIAL As Ordered ONE
[2020-08-13 13:15] LABS: BASO % 0.7 % (0.0-1.0); EOS # 0.1 10^3/uL (0.0-0.5); EOS % 2.4 % (0.0-3.0); HEMATOCRIT 33.3 % (36.0-47.0); HEMOGLOBIN 9.9 g/dl (12.0-15.5); LYMPH # 1.8 10^3/uL (1.5-5.0); LYMPH % 30.3 % (24.0-44.0); MEAN CORPUSCULAR HEMOGLOBIN 24.2 pg (27.0-33.0); MEAN CORPUSCULAR HGB CONC 29.7 g/dl (32.0-36.5); MEAN CORPUSCULAR VOLUME 81.4 fl (80.0-96.0); MONO # 0.4 10^3/uL (0.0-0.8); MONO % 7.5 % (2.0-8.0); NEUTROPHILS # 3.4 10^3/uL (1.5-8.5); NEUTROPHILS % 58.9 % (36.0-66.0); PLATELET COUNT, AUTOMATED 360 10^3/uL (150-450); RED BLOOD COUNT 4.09 10^6/uL (4.00-5.40); WHITE BLOOD COUNT 5.8 10^3/uL (4.0-10.0)
[2020-08-13 13:20] LABS: INR 0.91; PROTHROMBIN TIME 12.5 SECONDS (12.5-14.3)
[2020-08-13 13:21] LABS: PARTIAL THROMBOPLASTIN TIME 28.3 SECONDS (24.2-38.5)
[2020-08-13 13:41] LABS: BLOOD UREA NITROGEN 10 MG/DL (7-18); CALCIUM LEVEL 8.5 MG/DL (8.5-10.1); CARBON DIOXIDE LEVEL 28 MEQ/L (21-32); CHLORIDE LEVEL 111 MEQ/L (98-107); CREATININE FOR GFR 0.67 MG/DL (0.55-1.30); GLOMERULAR FILTRATION RATE > 60.0 (>58); GLUCOSE, FASTING 76 MG/DL (70-100); POTASSIUM SERUM 4.3 MEQ/L (3.5-5.1); SODIUM LEVEL 143 MEQ/L (136-145)
== END ==
LOC: M LAB 12:23
PROVIDERS: ATTEND Surgery Vascular Surgery
DX: I75.011 Atheroembolism of right upper extremity (principal); D69.8 Other specified hemorrhagic conditions; Z01.818 Encounter for other preprocedural examination

== ENCOUNTER 2020-09-01 09:31 | Outpatient (CLI) | payer BC ==
[~2020-09-01] VITALS: Ht 170.2 cm; Wt 109.0 kg
[2020-09-01] MEDS ORDERED: FERRIC CARBOXYMALTOSE INJ 750 MG, VIAL MATE ADAPTER 1 EACH in NS 250 ML IV ONE (10:00)
[2020-09-01 10:06] VITALS: BP 136/62
[2020-09-01 11:32] VITALS: BP 129/61
[2020-09-01 13:42] VITALS: BP 139/78
== END 2020-09-01 11:45 | disposition home or self-care (01) ==
LOC: M INFU 09:31
PROVIDERS: ATTEND Family Medicine
DX: D50.9 Iron deficiency anemia, unspecified (principal)
CPT/HCPCS: 96365; J1439

== ENCOUNTER → 2020-09-03 | Outpatient (REF) | payer BC | LOC: M SFHCRHEU 11:04 | PROVIDERS: ATTEND Internal Medicine Rheumatology | DX: I77.6 Arteritis, unspecified (principal) ==

== ENCOUNTER 2020-09-08 11:48 | Outpatient (CLI) | payer BC ==
[~2020-09-08] VITALS: Ht 170.2 cm; Wt 109.0 kg
[2020-09-08 11:50] VITALS: BP 144/68
[2020-09-08] MEDS ORDERED: FERRIC CARBOXYMALTOSE INJ 750 MG, VIAL MATE ADAPTER 1 EACH in NS 250 ML IV ONE (12:00)
[2020-09-08] MEDS ORDERED: NS 1,000 ML IV SCH (12:00)
[2020-09-08 14:40] VITALS: BP 138/64
== END 2020-09-08 14:40 | disposition home or self-care (01) ==
LOC: M INFU 11:48
PROVIDERS: ATTEND Family Medicine
DX: D50.9 Iron deficiency anemia, unspecified (principal)
CPT/HCPCS: 96365; 96366; J1439

== ENCOUNTER → 2020-09-30 | Outpatient (CLI) | payer BC ==
[2020-09-30 12:14] LABS: BASO % 0.4 % (0.0-1.0); EOS % 0.2 % (0.0-3.0); HEMATOCRIT 44.2 % (36.0-47.0); HEMOGLOBIN 13.9 g/dl (12.0-15.5); LYMPH # 1.2 10^3/uL (1.5-5.0); LYMPH % 21.6 % (24.0-44.0); MEAN CORPUSCULAR HGB CONC 31.4 g/dl (32.0-36.5); MEAN CORPUSCULAR VOLUME 85.8 fl (80.0-96.0); MONO # 0.2 10^3/uL (0.0-0.8); MONO % 3.4 % (2.0-8.0); NEUTROPHILS # 4.1 10^3/uL (1.5-8.5); PLATELET COUNT, AUTOMATED 282 10^3/uL (150-450); RED BLOOD COUNT 5.15 10^6/uL (4.00-5.40); WHITE BLOOD COUNT 5.5 10^3/uL (4.0-10.0)
[2020-09-30 12:52] LABS: ERYTHROCYTE SEDIMENTATION RATE 2 mm/hr (0-20)
[2020-09-30 12:59] LABS: ALT/SGPT 23 U/L (12-78); BILIRUBIN,TOTAL 0.5 MG/DL (0.2-1.0); BLOOD UREA NITROGEN 5 MG/DL (7-18); C REACTIVE PROTEIN QUANTITATIV 0.71 MG/DL (0.00-0.30); CALCIUM LEVEL 8.8 MG/DL (8.5-10.1); CARBON DIOXIDE LEVEL 24 MEQ/L (21-32); CHLORIDE LEVEL 107 MEQ/L (98-107); CREATININE FOR GFR 0.56 MG/DL (0.55-1.30); GLOMERULAR FILTRATION RATE > 60.0 (>58); GLUCOSE, FASTING 93 MG/DL (70-100); POTASSIUM SERUM 4.1 MEQ/L (3.5-5.1); SODIUM LEVEL 140 MEQ/L (136-145); TOTAL PROTEIN 6.9 GM/DL (6.4-8.2)
--- NOTE | 2020-09-30 19:55 | REP ---
INDICATION: ARTERITIS, UNSPECIFIED / LABS 1ST. Vasculitis. COMPARISON: Prior right foot radiographs are from September 23, 2013.. TECHNIQUE: Eight views, four views of each foot are provided. FINDINGS: Four views of the right foot demonstrate overall normal mineralization. There is minimal spurring at the 1st MTP joint. No erosive changes seen. There is a very small plantar calcaneal spur. No radiographic change in when compared with the prior study of September 23, 2013.. No fracture or subluxation is seen. No opaque foreign body noted. Four views of the left foot show overall normal mineralization. Joint spaces are preserved. No acute erosive changes seen. There is a tiny Achilles calcaneal spur on the left as well. IMPRESSION: No acute bony abnormality. Minimal spurring at the 1st MTP joint on the right and mild bilateral Achilles calcaneal spurring.. <Electronically signed by Vijay Wyatt > 09/30/201950
--- NOTE | 2020-10-01 03:00 | REP ---
INDICATION: VASCULITIS AND PAIN COMPARISON: None. TECHNIQUE: AP, lateral, and swimmers views. FINDINGS: There is no evidence for acute fracture/compression injury or subluxation. Endplate sclerosis with osteophytosis noted throughout the upper to midthoracic levels. IMPRESSION: Degenerative changes noted of the upper to midthoracic vertebral levels. No acute fracture/compression injury or subluxation. <Electronically signed by Louie Saunders > 10/01/20 0257
--- NOTE | 2020-10-01 03:05 | REP ---
INDICATION: ARTERITIS, UNSPECIFIED / LABS 1ST. COMPARISON: None. TECHNIQUE: AP and bilateral oblique views of the sacroiliac joints. (4 total views) FINDINGS: Mild symmetric periarticular sclerosis is appreciated bilaterally. IMPRESSION: Mild symmetric changes to the sacroiliac joints suggested <Electronically signed by Louie Saunders > 10/01/20 [id number]
--- NOTE | 2020-10-01 03:13 | REP ---
INDICATION: ARTERITIS, UNSPECIFIED / LABS 1ST COMPARISON: None. TECHNIQUE: AP, lateral, bilateral oblique views right and left hand. FINDINGS: Right hand: Periarticular sclerosis, chronic subluxation and small periarticular calcifications are identified at the 1st carpometacarpal joint. Remainder of the examination is essentially age-appropriate. Left hand: Periarticular sclerosis and subtle partial subluxation identified at the 1st carpometacarpal joint. Remainder of the examination is essentially age-appropriate.. IMPRESSION: Degenerative changes primarily involving the 1st carpometacarpal joints (right greater than left). <Electronically signed by Louie Saunders > 10/01/20 [id number]
--- NOTE | 2020-10-01 03:20 | REP ---
INDICATION: VASCULITIS AND PAIN COMPARISON: 09/21/2006 TECHNIQUE: AP, lateral, bilateral oblique, and coned-down views of the lumbar spine. FINDINGS: Alignment and lordosis maintained. Vertebral bodies are intact. No acute fracture/compression injury or subluxation. No obvious spondylolysis or spondylolisthesis.. Moderate degenerative changes include endplate sclerosis with disc space narrowing and marginal osteophytosis primarily noted at L5-S1 with associated hypertrophic facet changes as well as L4-5. Findings appear slightly progressive when compared to prior examination. IMPRESSION: Moderate degenerative changes primarily involving L5-S1 and L4-5. <Electronically signed by Louie Saunders > 10/01/20 [id number]
== END ==
LOC: M LAB 11:23
PROVIDERS: ATTEND Internal Medicine Rheumatology
DX: I77.6 Arteritis, unspecified (principal); M51.34 Other intervertebral disc degeneration, thoracic region; M51.36 Other intervertebral disc degeneration, lumbar region; M51.37 Other intervertebral disc degeneration, lumbosacral region; M19.041 Primary osteoarthritis, right hand; M19.042 Primary osteoarthritis, left hand

== ENCOUNTER → 2020-10-17 | Outpatient (CLI) | payer BC ==
[~2020-10-17] MED LIST changes: +CLOP75TA2; +PRED10TA2
--- NOTE | 2020-10-20 10:19 | ECHO ---
ECHOCARDIOGRAM DATE OF PROCEDURE: 10/17/2020 Age: Gender: Height: 170 cm Weight: 109 kg REFERRING PHYSICIAN: Dr. Db Sullivan. INDICATION: Shortness of breath, arteritis. MEASUREMENTS: 2D Measurements: Septum 0.98 cm Posterior wall 1.04 cm Left ventricle diastole 4.8 cm Left ventricle systole 3.2 cm Aortic root 3.1 cm Left atrium 3.4 cm Proximal ascending aorta 3.2 cm LVOT 2.0 cm Left atrium volume index 22 cm Doppler Measurements: No aortic stenosis No aortic regurgitation Aortic valve velocity 89.7 cm/s Very mild mitral regurgitation within normal limits Mitral E velocity 99.2 cm/s Mitral A velocity 54.1 cm/s Mitral deceleration time 169 msec No tricuspid regurgitation No pulmonic regurgitation MITRAL ANNULAR TISSUE DOPPLER E prime septal 8.4 cm/s, E prime lateral 12.0 cm/s DESCRIPTION: Rhythm was sinus. This was a moderately technically difficult echocardiogram. This was a 2D, M-mode, color flow Doppler, and pulsed wave Doppler examination including mitral annular tissue Doppler. CONCLUSIONS: 1. Normal left ventricle internal dimensions and wall thickness. Normal regional LV wall motion and all thickening. Normal LV systolic function. LVEF 65% by visual estimate. Normal LV diastolic function. 2. Normal right ventricle size and systolic function. 3. No pericardial effusion. 4. Moderately technically difficult echocardiogram.
== END ==
LOC: M CARPUL 07:25
PROVIDERS: ATTEND Internal Medicine Hematology & Oncology
DX: I77.6 Arteritis, unspecified (principal)

== ENCOUNTER → 2020-11-09 | Outpatient (CLI) | payer BC ==
[~2020-11-09] MED LIST changes: +ERGO500029 PO; +MULT-90 PO
[2020-11-09 14:49] LABS: PERCENT SATURATION 21.7 % (13.2-45.0)
== END ==
LOC: M LAB 13:11
PROVIDERS: ATTEND Family Medicine
DX: D50.9 Iron deficiency anemia, unspecified (principal)

== ENCOUNTER → 2020-11-09 | Outpatient (CLI) | payer BC ==
[2020-11-12 11:23] LABS: DRVV SCREEN 29.7 SEC
[2020-11-12 11:25] LABS: PTT LUPUS TYPE ANTICOAG SCREEN 0.8 (0-1.2)
== END ==
LOC: M LAB 13:01
PROVIDERS: ATTEND Internal Medicine
DX: D68.59 Other primary thrombophilia (principal)

== ENCOUNTER → 2020-11-12 | Outpatient (CLI) | payer BC ==
[2020-11-14 16:08] LABS: ANCA-ATYPICAL <1:20 titer (Neg:<1:20); BETA-2 GLYCOPROTEIN I ABY IGA <9 (0-25); BETA-2 GLYCOPROTEIN I ABY IGG <9 (0-20); BETA-2 GLYCOPROTEIN I ABY IGM <9 (0-32); CARDIOLIPIN IGA ANTIBODY <9 APL U/mL (0-11); CARDIOLIPIN IGG ANTIBODY <9 GPL U/mL (0-14); CARDIOLIPIN IGM ANTIBODY <9 MPL U/mL (0-12); CYTOPLASMIC NEUTROP AB ANCA-C <1:20 titer (Neg:<1:20); PERINUCLEAR AB ANCA-P <1:20 titer (Neg:<1:20)
== END ==
LOC: M LAB 11:29
PROVIDERS: ATTEND Internal Medicine
DX: D68.59 Other primary thrombophilia (principal)

== ENCOUNTER → 2020-12-24 | Outpatient (CLI) | payer BC ==
[2020-12-24 10:42] LABS: BASO % 0.7 % (0.0-1.0); EOS # 0.2 10^3/uL (0.0-0.5); EOS % 2.6 % (0.0-3.0); HEMATOCRIT 44.4 % (36.0-47.0); HEMOGLOBIN 14.3 g/dl (12.0-15.5); LYMPH # 1.7 10^3/uL (1.5-5.0); LYMPH % 29.3 % (24.0-44.0); MEAN CORPUSCULAR HEMOGLOBIN 29.4 pg (27.0-33.0); MEAN CORPUSCULAR HGB CONC 32.2 g/dl (32.0-36.5); MEAN CORPUSCULAR VOLUME 91.4 fl (80.0-96.0); MONO # 0.4 10^3/uL (0.0-0.8); MONO % 6.3 % (2.0-8.0); NEUTROPHILS # 3.5 10^3/uL (1.5-8.5); NEUTROPHILS % 60.9 % (36.0-66.0); PLATELET COUNT, AUTOMATED 286 10^3/uL (150-450); RED BLOOD COUNT 4.86 10^6/uL (4.00-5.40); WHITE BLOOD COUNT 5.7 10^3/uL (4.0-10.0)
[2020-12-24 11:54] LABS: ALBUMIN 3.4 GM/DL (3.2-5.2); ALT/SGPT 24 U/L (12-78); BILIRUBIN,TOTAL 0.5 MG/DL (0.2-1.0); BLOOD UREA NITROGEN 8 MG/DL (7-18); CALCIUM LEVEL 9.1 MG/DL (8.5-10.1); CARBON DIOXIDE LEVEL 25 MEQ/L (21-32); CHLORIDE LEVEL 108 MEQ/L (98-107); CHOLESTEROL LEVEL 227 MG/DL (<200); CHOLESTEROL RISK RATIO 2.948 (<5); CREATININE FOR GFR 0.74 MG/DL (0.55-1.30); FERRITIN 25 NG/ML (8-252); FREE T4 1.05 NG/DL (0.76-1.46); GLOMERULAR FILTRATION RATE > 60.0 (>58); GLUCOSE, FASTING 85 MG/DL (70-100); HDL CHOLESTEROL 77 MG/DL (>40); IRON (FE) 140 UG/DL (50-170); LDL CHOLESTEROL 130 MG/DL (<100); NON-HDL-C 150 MG/DL; PERCENT SATURATION 31.6 % (13.2-45.0); POTASSIUM SERUM 4.7 MEQ/L (3.5-5.1); SODIUM LEVEL 139 MEQ/L (136-145); TOTAL IRON BINDING CAPACITY 443 UG/DL (250-450); TOTAL PROTEIN 6.7 GM/DL (6.4-8.2); TRIGLYCERIDES LEVEL 101 MG/DL (<150)
== END ==
LOC: M LAB 09:41
PROVIDERS: ATTEND Family Medicine
DX: D50.9 Iron deficiency anemia, unspecified (principal); Z13.29 Encounter for screening for other suspected endocrine disorder; Z13.220 Encounter for screening for lipoid disorders

== ENCOUNTER → 2021-02-04 | Outpatient (CLI) | payer BC ==
[~2021-02-04] MED LIST changes: +BUPR150T5
--- NOTE | 2021-02-04 09:50 | REPMRS ---
Patient History The patient states she had a clinical breast exam in November 2020. Family history of colorectal cancer at age 50 or over in father. Patient states no breast complaints today. Patient has signed MRS History Sheet. Digital Woman Screen Mammo: February 04, 2021 - Exam #: [id number] Bilateral CC and MLO view(s) were taken. Technologist: Usha He, Technologist Prior study comparison: February 19, 2013, left breast digital mammo diagnostic unilateral, performed at [facility]. February 02, 2013, digital woman screen mammo performed at [facility]. FINDINGS: The breast tissue is almost entirely fat. Screening. Digital screening (2D) mammography was performed bilaterally in the CC and MLO projections. Additionally, breast tomosynthesis (3D mammography) was performed bilaterally in the CC and MLO projections. Todays exam was compared to the prior exam/exams. By history, the patient has no complaints of a palpable breast abnormality or other significant breast complaints. The breasts are unchanged in size and shape. There are no ephraim-soft tissue densities or spiculated masses. There is no internal architectural distortion. There are no suspicious ephraim-calcific clusters. Skin thickening or nipple retraction is not present. The Volpara volumetric breast density category is A, the breasts are almost entirely fatty. IMPRESSION: BI-RADS Category 2- Benign Findings. There is no evidence of malignant alteration of the breasts. Followup examination recommended in one year. This mammogram was read with the assistance of [employer],an FDA approved computer aided detection system for mammography. The lifetime Tyrer-Cuzick score is 8.9% Negative x-ray reports should not delay surgical consultation if a dominant or clinically suspicious mass is present. Not all breast cancers can be identified by mammography. Therefore, we recommend that you continue to perform regular breast self-examination and physical examination and then promptly contact your physician of any concerns or changes. Adenosis and dense breasts may obscure an underlying neoplasm. No significant changes when compared with prior studies. Assessment: BI-RADS/ACR category 2 mammogram. Benign Findings. Recommendation Routine screening mammogram of both breasts in 1 year. Electronically Signed By: Lauro Castro MD 02/04/21 0949
== END ==
LOC: M WHC 08:05
PROVIDERS: ATTEND Family Medicine
DX: Z12.31 Encounter for screening mammogram for malignant neoplasm of breast (principal)

== ENCOUNTER → 2021-04-22 | Outpatient (CLI) | payer BC ==
[2021-04-22 10:31] LABS: BASO % 0.4 % (0.0-1.0); EOS # 0.2 10^3/uL (0.0-0.5); HEMATOCRIT 43.4 % (36.0-47.0); HEMOGLOBIN 14.1 g/dl (12.0-15.5); LYMPH # 1.4 10^3/uL (1.5-5.0); LYMPH % 24.8 % (24.0-44.0); MEAN CORPUSCULAR HEMOGLOBIN 28.6 pg (27.0-33.0); MEAN CORPUSCULAR HGB CONC 32.5 g/dl (32.0-36.5); MONO # 0.2 10^3/uL (0.0-0.8); MONO % 4.2 % (2.0-8.0); NEUTROPHILS # 3.6 10^3/uL (1.5-8.5); NEUTROPHILS % 66.2 % (36.0-66.0); PLATELET COUNT, AUTOMATED 315 10^3/uL (150-450); RED BLOOD COUNT 4.93 10^6/uL (4.00-5.40); WHITE BLOOD COUNT 5.4 10^3/uL (4.0-10.0)
[2021-04-22 10:57] LABS: ALBUMIN 3.6 GM/DL (3.2-5.2); ALT/SGPT 21 U/L (12-78); BILIRUBIN,TOTAL 0.4 MG/DL (0.2-1.0); BLOOD UREA NITROGEN 7 MG/DL (7-18); C REACTIVE PROTEIN QUANTITATIV 0.36 MG/DL (0.00-0.30); CALCIUM LEVEL 9.1 MG/DL (8.5-10.1); CARBON DIOXIDE LEVEL 28 MEQ/L (21-32); CHLORIDE LEVEL 110 MEQ/L (98-107); CREATININE FOR GFR 0.74 MG/DL (0.55-1.30); GLOMERULAR FILTRATION RATE > 60.0 (>58); GLUCOSE, FASTING 94 MG/DL (70-100); POTASSIUM SERUM 4.1 MEQ/L (3.5-5.1); SODIUM LEVEL 144 MEQ/L (136-145); TOTAL PROTEIN 6.7 GM/DL (6.4-8.2)
[2021-04-22 11:09] LABS: ERYTHROCYTE SEDIMENTATION RATE 3 mm/hr (0-20)
== END ==
LOC: M LAB 09:25
PROVIDERS: ATTEND Internal Medicine
DX: I73.1 Thromboangiitis obliterans [Buerger's disease] (principal)

== ENCOUNTER → 2021-08-27 | Outpatient (CLI) | payer BC ==
[~2021-08-27] MED LIST changes: +BUPR-71; -BUPR150T5
[2021-08-27 11:16] LABS: BASO % 0.4 % (0.0-1.0); EOS # 0.1 10^3/uL (0.0-0.5); EOS % 1.2 % (0.0-3.0); HEMATOCRIT 38.2 % (36.0-47.0); HEMOGLOBIN 12.1 g/dl (12.0-15.5); LYMPH # 3.1 10^3/uL (1.5-5.0); LYMPH % 41.1 % (24.0-44.0); MEAN CORPUSCULAR HEMOGLOBIN 27.4 pg (27.0-33.0); MEAN CORPUSCULAR HGB CONC 31.7 g/dl (32.0-36.5); MEAN CORPUSCULAR VOLUME 86.6 fl (80.0-96.0); MONO # 0.5 10^3/uL (0.0-0.8); MONO % 6.8 % (2.0-8.0); NEUTROPHILS # 3.8 10^3/uL (1.5-8.5); NEUTROPHILS % 50.1 % (36.0-66.0); PLATELET COUNT, AUTOMATED 335 10^3/uL (150-450); RED BLOOD COUNT 4.41 10^6/uL (4.00-5.40); WHITE BLOOD COUNT 7.5 10^3/uL (4.0-10.0)
[2021-08-27 11:50] LABS: ERYTHROCYTE SEDIMENTATION RATE 4 mm/hr (0-20)
[2021-08-27 12:11] LABS: ALBUMIN 3.5 GM/DL (3.2-5.2); ALT/SGPT 31 U/L (12-78); BILIRUBIN,TOTAL 0.4 MG/DL (0.2-1.0); BLOOD UREA NITROGEN 12 MG/DL (7-18); CALCIUM LEVEL 8.9 MG/DL (8.5-10.1); CARBON DIOXIDE LEVEL 31 MEQ/L (21-32); CHLORIDE LEVEL 110 MEQ/L (98-107); CREATININE FOR GFR 0.72 MG/DL (0.55-1.30); GLOMERULAR FILTRATION RATE > 60.0 (>58); GLUCOSE, FASTING 81 MG/DL (70-100); POTASSIUM SERUM 3.8 MEQ/L (3.5-5.1); SODIUM LEVEL 145 MEQ/L (136-145); TOTAL PROTEIN 6.6 GM/DL (6.4-8.2)
== END ==
LOC: M RAD 09:11
PROVIDERS: ATTEND Family Medicine
DX: J44.1 Chronic obstructive pulmonary disease with (acute) exacerbation (principal)

== ENCOUNTER → 2022-06-07 | Outpatient (CLI) | payer BC ==
[2022-06-07 15:22] LABS: C REACTIVE PROTEIN QUANTITATIV 0.6 MG/DL (<1.0)
[2022-06-07 15:24] LABS: FREE T4 1.04 NG/DL (0.89-1.76); RHEUMATOID FACTOR QUANT 4.5 IU/ML (<14); THYROID STIMULATING HORMONE 1.278 uIU/ML (0.55-4.78)
[2022-06-08 23:20] LABS: ANA (HEP2) Negative (.); CYCLIC CITRULLINATED PEPTIDE 4 units (0-19)
== END ==
LOC: M PLALAB 11:07
PROVIDERS: ATTEND Family Medicine
DX: M25.511 Pain in right shoulder (principal); M25.572 Pain in left ankle and joints of left foot; M25.471 Effusion, right ankle

== ENCOUNTER → 2022-07-05 | Outpatient (CLI) | payer BC | LOC: M RAD 13:30 | PROVIDERS: ATTEND Nurse Practitioner Family | DX: R06.02 Shortness of breath (principal); K44.9 Diaphragmatic hernia without obstruction or gangrene; J43.9 Emphysema, unspecified ==

== ENCOUNTER → 2022-07-26 | Outpatient (CLI) | payer BC ==
[2022-07-26 14:31] LABS: BASO % 0.8 % (0.0-1.0); EOS # 0.1 10^3/uL (0.0-0.5); EOS % 1.9 % (0.0-3.0); HEMOGLOBIN 11.3 g/dl (12.0-15.5); LYMPH # 1.8 10^3/uL (1.5-5.0); LYMPH % 36.4 % (24.0-44.0); MEAN CORPUSCULAR HEMOGLOBIN 26.8 pg (27.0-33.0); MEAN CORPUSCULAR HGB CONC 31.4 g/dl (32.0-36.5); MEAN CORPUSCULAR VOLUME 85.3 fl (80.0-96.0); MONO # 0.3 10^3/uL (0.0-0.8); MONO % 5.1 % (2.0-8.0); NEUTROPHILS # 2.7 10^3/uL (1.5-8.5); NEUTROPHILS % 55.6 % (36.0-66.0); PLATELET COUNT, AUTOMATED 345 10^3/uL (150-450); RED BLOOD COUNT 4.22 10^6/uL (4.00-5.40); WHITE BLOOD COUNT 4.9 10^3/uL (4.0-10.0)
[2022-07-26 14:46] LABS: ALBUMIN 3.5 G/DL (3.2-5.2); ALKALINE PHOSPHATASE 87 U/L (46-116); ALT/SGPT 17 U/L (7.0-40); AST/SGOT 16 U/L (<34); BILIRUBIN,TOTAL 0.3 MG/DL (0.3-1.2); BLOOD UREA NITROGEN 8 MG/DL (9-23); CALCIUM LEVEL 8.5 MG/DL (8.5-10.1); CARBON DIOXIDE LEVEL 27 MMOL/L (20-31); CHLORIDE LEVEL 108 MMOL/L (98-107); GLOMERULAR FILTRATION RATE > 60.0 (>58); GLUCOSE, FASTING 76 MG/DL (60-100); POTASSIUM SERUM 4.2 MMOL/L (3.5-5.1); SODIUM LEVEL 141 MMOL/L (136-145); TOTAL PROTEIN 6.1 G/DL (5.7-8.2)
[2022-07-26 14:47] LABS: C REACTIVE PROTEIN QUANTITATIV < 0.40 MG/DL (<1.0)
[2022-07-26 14:48] LABS: RHEUMATOID FACTOR QUANT < 3.5 IU/ML (<14)
[2022-07-26 15:05] LABS: ERYTHROCYTE SEDIMENTATION RATE 17 mm/hr (0-20)
[2022-08-05 14:08] LABS: ANTI DS-DNA AB Negative (Negative); ANTINUCLEAR ANTIBODIES DIRECT Negative (Negative); CYCLIC CITRULLINATED PEPTIDE 2 units (0-19); HLA-B27 Negative (.); RNP ANTIBODIES <0.2 AI (0.0-0.9); SJOGREN'S ANTI SS-A <0.2 AI (0.0-0.9); SJOGREN'S ANTI SS-B <0.2 AI (0.0-0.9); SMITH ANTIBODIES <0.2 AI (0.0-0.9)
== END ==
LOC: M LAB 11:45
PROVIDERS: ATTEND Internal Medicine
DX: M19.90 Unspecified osteoarthritis, unspecified site (principal)

== ENCOUNTER → 2022-09-20 | Outpatient (CLI) | payer BC | LOC: M PLALAB 09:22 | PROVIDERS: ATTEND Internal Medicine Pulmonary Disease | DX: J43.9 Emphysema, unspecified (principal) ==

== ENCOUNTER → 2022-09-20 | Outpatient (CLI) | payer BC ==
[2022-09-20 14:15] LABS: BASO % 0.6 % (0.0-1.0); EOS # 0.1 10^3/uL (0.0-0.5); EOS % 2.6 % (0.0-3.0); HEMATOCRIT 36.6 % (36.0-47.0); HEMOGLOBIN 11.4 g/dl (12.0-15.5); LYMPH # 1.7 10^3/uL (1.5-5.0); LYMPH % 33.4 % (24.0-44.0); MEAN CORPUSCULAR HEMOGLOBIN 26.6 pg (27.0-33.0); MEAN CORPUSCULAR HGB CONC 31.1 g/dl (32.0-36.5); MEAN CORPUSCULAR VOLUME 85.5 fl (80.0-96.0); MONO # 0.3 10^3/uL (0.0-0.8); MONO % 6.6 % (2.0-8.0); NEUTROPHILS # 2.8 10^3/uL (1.5-8.5); NEUTROPHILS % 56.6 % (36.0-66.0); PLATELET COUNT, AUTOMATED 330 10^3/uL (150-450); RED BLOOD COUNT 4.28 10^6/uL (4.00-5.40)
[2022-09-20 14:34] LABS: IRON (FE) 20 UG/DL (50-170)
[2022-09-20 14:36] LABS: ALBUMIN 3.8 G/DL (3.2-5.2); ALKALINE PHOSPHATASE 85 U/L (46-116); ALT/SGPT 16 U/L (7.0-40); AST/SGOT 16 U/L (<34); BILIRUBIN,TOTAL 0.3 MG/DL (0.3-1.2); BLOOD UREA NITROGEN 7 MG/DL (9-23); CALCIUM LEVEL 8.9 MG/DL (8.5-10.1); CARBON DIOXIDE LEVEL 28 MMOL/L (20-31); CHLORIDE LEVEL 108 MMOL/L (98-107); CREATININE FOR GFR 0.72 MG/DL (0.55-1.30); FOLATE 8.2 NG/ML (>5.4); FREE T4 1.12 NG/DL (0.89-1.76); GLOMERULAR FILTRATION RATE > 60.0 (>51); GLUCOSE, FASTING 85 MG/DL (60-100); PERCENT SATURATION 5.2 % (13.2-45.0); POTASSIUM SERUM 4.1 MMOL/L (3.5-5.1); SODIUM LEVEL 141 MMOL/L (136-145); THYROID STIMULATING HORMONE 1.492 uIU/ML (0.55-4.78); TOTAL IRON BINDING CAPACITY 383 UG/DL (250-425); TOTAL PROTEIN 6.5 G/DL (5.7-8.2); VITAMIN B12 LEVEL 305 PG/ML (211-911)
== END ==
LOC: M PLALAB 09:25
PROVIDERS: ATTEND Family Medicine
DX: J44.9 Chronic obstructive pulmonary disease, unspecified (principal); E55.9 Vitamin D deficiency, unspecified; D51.9 Vitamin B12 deficiency anemia, unspecified; R53.83 Other fatigue; D50.9 Iron deficiency anemia, unspecified

== ENCOUNTER 2022-10-08 11:55 | Outpatient (CLI) | payer BC ==
[~2022-10-08] VITALS: Ht 170.2 cm; Wt 111.1 kg
[2022-10-08 12:28] VITALS: BP 125/58
[2022-10-08] MEDS ORDERED: FERRIC CARBOXYMALTOSE INJ 750 MG in NS 250 ML (>50kg) IV ONE ×3 (13:00)
[2022-10-08 13:40] VITALS: BP 123/59
== END 2022-10-08 13:40 | disposition home or self-care (01) ==
LOC: M INFU 11:55
PROVIDERS: ATTEND Nurse Practitioner Adult Health
DX: D50.9 Iron deficiency anemia, unspecified (principal)
CPT/HCPCS: 96365; J1439

== ENCOUNTER → 2023-03-08 | Outpatient (CLI) | payer BC ==
[2023-03-08 13:34] LABS: ALBUMIN 3.8 G/DL (3.2-5.2); ALKALINE PHOSPHATASE 83 U/L (46-116); ALT/SGPT 13 U/L (7.0-40); AST/SGOT 12 U/L (<34); BILIRUBIN,TOTAL 0.4 MG/DL (0.3-1.2); BLOOD UREA NITROGEN 10 MG/DL (9-23); CALCIUM LEVEL 9.2 MG/DL (8.5-10.1); CARBON DIOXIDE LEVEL 29 MMOL/L (20-31); CHLORIDE LEVEL 110 MMOL/L (98-107); CHOLESTEROL LEVEL 203 MG/DL (<200); CHOLESTEROL RISK RATIO 3.21 (<5); CREATININE FOR GFR 0.71 MG/DL (0.55-1.30); FERRITIN 17.8 NG/ML (7.3-270.7); GLOMERULAR FILTRATION RATE > 60.0 (>51); GLUCOSE, FASTING 88 MG/DL (60-100); HDL CHOLESTEROL 63.2 MG/DL (>40); IRON (FE) 73 UG/DL (50-170); NON-HDL-C 139.8 MG/DL; PERCENT SATURATION 25.2 % (13.2-45.0); POTASSIUM SERUM 4.2 MMOL/L (3.5-5.1); SODIUM LEVEL 144 MMOL/L (136-145); TOTAL 25(OH) VITAMIN D 15.5 NG/ML (20.0-100.0); TOTAL IRON BINDING CAPACITY 290 UG/DL (250-425); TOTAL PROTEIN 6.4 G/DL (5.7-8.2); TRIGLYCERIDES LEVEL 79 MG/DL (<150)
[2023-03-08 13:35] LABS: VITAMIN B12 LEVEL 286 PG/ML (211-911)
[2023-03-08 13:38] LABS: BASO % 0.6 % (0.0-1.0); EOS # 0.1 10^3/uL (0.0-0.5); EOS % 2.2 % (0.0-3.0); HEMATOCRIT 41.4 % (36.0-47.0); HEMOGLOBIN 13.8 g/dl (12.0-15.5); LYMPH # 1.6 10^3/uL (1.5-5.0); LYMPH % 34.4 % (24.0-44.0); MEAN CORPUSCULAR HEMOGLOBIN 30.4 pg (27.0-33.0); MEAN CORPUSCULAR HGB CONC 33.3 g/dl (32.0-36.5); MEAN CORPUSCULAR VOLUME 91.2 fl (80.0-96.0); MONO # 0.4 10^3/uL (0.0-0.8); MONO % 7.8 % (2.0-8.0); NEUTROPHILS # 2.5 10^3/uL (1.5-8.5); PLATELET COUNT, AUTOMATED 265 10^3/uL (150-450); RED BLOOD COUNT 4.54 10^6/uL (4.00-5.40); WHITE BLOOD COUNT 4.6 10^3/uL (4.0-10.0)
[2023-03-08 13:43] LABS: FOLATE 9.2 NG/ML (>5.4)
[2023-03-08 14:15] LABS: ERYTHROCYTE SEDIMENTATION RATE 8 mm/hr (0-30)
[2023-03-10 00:06] LABS: ANA (HEP2) Negative (.)
== END ==
LOC: M PLALAB 09:01
PROVIDERS: ATTEND Family Medicine
DX: D50.9 Iron deficiency anemia, unspecified (principal)

== ENCOUNTER → 2023-08-19 | Day surgery (SDC) | payer BC ==
[~2023-08-19] VITALS: Ht 170.2 cm; Wt 117.2 kg
[~2023-08-19] MED LIST changes: +ALBU8.5H; -BUPR-71; +BUPR-71 PO; +CITA20TA6 PO; +FLUT1BLS8; +HYDR200T46 PO; +LIDOCAINE 2% 100MG/5ML SDV (FOR ANES.) As Ordered ONE; +METH2.5T48 PO; +OMEP40CA5 PO; +propofoL 200 MG/20 ML VIAL As Ordered ONE
[2023-08-19] MEDS: NS 1,000 ML IV ONE (09:07)
[2023-08-19 11:22] VITALS: TEMP 96.8
[2023-08-19 11:35] VITALS: BP 136/69; O2SAT 98
== END | disposition home or self-care (01) ==
LOC: M OPP 08:40
PROVIDERS: ATTEND Surgery
DX: Z12.11 Encounter for screening for malignant neoplasm of colon (principal); Z80.0 Family history of malignant neoplasm of digestive organs; D12.6 Benign neoplasm of colon, unspecified; K64.4 Residual hemorrhoidal skin tags; Z98.84 Bariatric surgery status; F17.200 Nicotine dependence, unspecified, uncomplicated; Z79.1 Long term (current) use of non-steroidal anti-inflammatories (NSAID); Z79.51 Long term (current) use of inhaled steroids; Z79.631 Long term (current) use of antimetabolite agent; Z79.899 Other long term (current) drug therapy

== ENCOUNTER → 2023-09-12 | Outpatient (CLI) | payer BC ==
[~2023-09-12] MED LIST changes: -LIDOCAINE 2% 100MG/5ML SDV (FOR ANES.) As Ordered ONE; -propofoL 200 MG/20 ML VIAL As Ordered ONE
== END ==
LOC: M RAD 07:31
PROVIDERS: ATTEND Nurse Practitioner Family
DX: Z12.2 Encounter for screening for malignant neoplasm of respiratory organs (principal); Z87.891 Personal history of nicotine dependence